=== PATIENT | female | born 1950 | race Caucasian/White ===

== ENCOUNTER 2019-08-18 16:23 | Observation (INO) ==
[2019-08-18] MEDS ORDERED: ASPIRIN 325 MG TABLET PO STA (17:04)
[2019-08-18 17:23] LABS: Basophils % 0.9 % (0.0-0.8); Eosinophils # 0.3 10*3/uL (0.0-0.87); Eosinophils % 6.1 % (0.00-10.9); Hematocrit 43.1 VOL% (35.7-47.0); Hemoglobin 13.9 GM/DL (12.0-16.0); Immature Granulocytes % 0.2 %; Immature Granulocytes Absolute 0.01 #; Lymphocytes # 1.4 10*3/uL (1.4-4.0); Lymphocytes % 32.6 % (21.3-54.2); Mean Corpuscular HGB Conc 32.3 GM/DL (32-36); Mean Corpuscular Volume 94.7 FL (87-102); Monocytes % 13.1 % (1.7-12.7); Neutrophils % 47.1 % (38.7-73.9); Platelet Count 264 T/CUMM (130-400); Red Blood Count 4.55 MC/CUMM (3.8-5.5); Red Cell Distribution Width 12.8 % (9.3-17.3); White Blood Count 4.3 T/CUMM (4-12)
[2019-08-18 17:38] LABS: Alanine Aminotransferase 27 U/L (13-56); Albumin 3.4 G/DL (3.4-5.0); Alkaline Phosphatase 71 U/L (45-117); Aspartate Amino Transferase 22 U/L (0-37); Blood Urea Nitrogen 24 MG/DL (7-18); Calcium 9.4 MG/DL (8.5-10.1); Estimated Glom Filtration Rate 39 ML/MIN; Glucose 95 MG/DL (74-106); Total Protein 6.1 G/DL (6.4-8.3)
[2019-08-18 17:40] LABS: PT Patient Result 10.7 SECS (9.6-12.2); Partial Thromboplastin Time 27.4 SECS (20.8-36.0)
[2019-08-18 18:13] LABS: Apearance,Urine Slightly Hazy (Clear); Bilirubin,Urine Negative (Negative); Blood, Urine Negative (Negative); Glucose,Urine (UA) Negative (Negative); Ketones,Urine Negative (Negative); Mucus,Urine Occasional /LPF (Occasional); Nitrite,Urine Negative (Negative); Protein,Urine Negative; Squamous Epithelial Cell,Urine Occasional /HPF (0-10); Urine Color Yellow (Yellow); Urine Specific Gravity 1.019 (1.001-1.035); Urine Urobilinogen < 2.0 EU/DL (0.2-1.0)
[2019-08-18 18:47] LABS: Barbiturates Screen,Urine Negative (Negative); Benzodiazepines Screen,Urine Negative (Negative); Cannabinoid Screen,Urine Negative (Negative); Opiate Screen,Urine Negative (Negative); Phencyclidine Screen,Urine Negative (Negative)
[2019-08-18] MEDS ORDERED: LABETALOL 20 MG/4 ML SYRINGE IV PRN (19:31)
[2019-08-18] MEDS ORDERED: INFLUENZA VIRUS VACCINE 0.5 ML SYRINGE IM ONE (19:39)
[2019-08-18] MEDS: SODIUM CHLORIDE 0.9% 1,000 ML IV SCH (21:19)
[2019-08-18] MEDS: ATORVASTATIN 80 MG TABLET PO SCH (21:20)
[2019-08-19] MEDS: SODIUM CHLORIDE 0.9% 1,000 ML IV SCH ×2 (05:15→15:21)
[2019-08-19 05:18] LABS: Basophils # 0.1 10*3/uL (0.0-0.2); Basophils % 1.1 % (0.0-0.8); Eosinophils # 0.4 10*3/uL (0.0-0.87); Eosinophils % 8.4 % (0.00-10.9); Hematocrit 38.8 VOL% (35.7-47.0); Hemoglobin 12.8 GM/DL (12.0-16.0); Immature Granulocytes % 0.2 %; Immature Granulocytes Absolute 0.01 #; Lymphocytes # 1.8 10*3/uL (1.4-4.0); Lymphocytes % 38.8 % (21.3-54.2); Mean Corpuscular Volume 95.1 FL (87-102); Mean Platelet Volume 10.1 FL (9.6-12.0); Monocytes % 10.8 % (1.7-12.7); Neutrophils % 40.7 % (38.7-73.9); Platelet Count 247 T/CUMM (130-400); Red Blood Count 4.08 MC/CUMM (3.8-5.5); Red Cell Distribution Width 12.7 % (9.3-17.3); White Blood Count 4.6 T/CUMM (4-12)
[2019-08-19 05:49] LABS: Osmolality,Calculated 294.3 MOS/KG (273-304); Risk Ratio 4.03; VLDL CHOLESTEROL 18.6 MG/DL
[2019-08-19] MEDS: LEVOTHYROXINE 150 MCG TABLET PO SCH (06:18)
[2019-08-19] MEDS: ASPIRIN EC 81 MG TABLET PO SCH (10:09)
[2019-08-19] MEDS: ATORVASTATIN 80 MG TABLET PO SCH (20:22)
[2019-08-20] MEDS: LEVOTHYROXINE 150 MCG TABLET PO SCH (06:12)
[2019-08-20] MEDS: ASPIRIN EC 81 MG TABLET PO SCH (09:01)
[2019-08-20 09:58] LABS: Calcium 9.6 MG/DL (8.5-10.1); Osmolality,Calculated 282.1 MOS/KG (273-304)
[2019-08-20 10:41] VITALS: BP 133/86
== END 2019-08-20 11:46 | disposition home or self-care (01) ==
LOC: N.ED 16:23 → N.EDINP 16:23 → N.4E 19:19
PROVIDERS: ADMIT Internal Medicine; ATTEND Internal Medicine